=== PATIENT | male | born 1975 | race Caucasian/White ===

== ENCOUNTER 2018-09-22 15:22 | Emergency (ER) | payer MEDICAID ==
[~2018-09-22] VITALS: Ht 170.2 cm; Wt 85.7 kg
[2018-09-22 15:22] VITALS: BP_SYST 127
--- NOTE | 2018-09-22 15:22 | NUR ---
BROUGHT BACK TO BED #8 AND TRIAGED. REPORT GIVEN TO SHANNON
--- NOTE | 2018-09-22 15:40 | NUR ---
Patient presented to ER with chest pain. Patient AA&Ox4, afebrile, skin pink, respirations equal bilat, pain 1/10. Patient states "chest pressure started Wednesday" and he feels tired, chest discomfort did not subside so patient decided to come to ER. Patient states he was concerned that chest discomfort continued for several days. Patient states he has history of high blood pressure and takes Lisinopril(pt does not knoe dose) and fenofibrate daily. patient states he is prescribed Levothyroxide but has notaken in past 5 days.
--- NOTE | 2018-09-22 15:50 | NUR ---
ER Dr. Olmedo at bedside examining patient.
[2018-09-22] MEDS ORDERED: NACL 0.9% 1,000 ML IV ONE (16:00)
[2018-09-22] MEDS ORDERED: ASPIRIN 81 MG TAB.CHEW PO ONE (16:00)
[2018-09-22 16:26] LABS: BASOPHILS % (AUTO) 0.5 % (0.0-2.0); EOSINOPHILS % (AUTO) 0.3 % (0.0-4.0); HEMATOCRIT 40.5 % (36-54); HEMOGLOBIN 13.6 g/dL (14.0-18.0); LYMPHOCYTES # (AUTO) 1.3 K/uL (1.0-5.5); LYMPHOCYTES % (AUTO) 25.4 % (20.5-51.5); MEAN CORPUSCULAR HEMOGLOBIN 30 pg (27-31); MEAN CORPUSCULAR HGB CONC 34 % (32-36); MEAN CORPUSCULAR VOLUME 90 fL (79.0-98.0); MONOCYTES # (AUTO) 0.4 K/uL (0.0-1.0); MONOCYTES % (AUTO) 8.5 % (1.7-9.3); NEUTROPHILS # (AUTO) 3.3 K/uL (1.8-7.7); NEUTROPHILS % (AUTO) 65.3 % (40.0-70.0); PLATELET COUNT (AUTO) 366 K/uL (130-430); RED BLOOD CELL COUNT(AUTO) 4.51 MIL/uL (4.2-6.2); RED CELL DISTRIBUTION WIDTH 13.1 % (9.0-15.0)
[2018-09-22 16:28] LABS: BILIRUBIN,URINE NEGATIVE (NEGATIVE); BLOOD, URINE TRACE (NEGATIVE); CLARITY/URINE CLEAR (CLEAR); COLOR,URINE YELLOW (YELLOW); GLUCOSE,URINE NEGATIVE (NEGATIVE); KETONES,URINE NEGATIVE (NEGATIVE); LEUKOCYTE ESTERASE ,URINE NEGATIVE (NEGATIVE); NITRITE, URINE NEGATIVE (NEGATIVE); PROTEIN URINE NEGATIVE (NEGATIVE); UROBILINOGEN,URINE 0.2 (0.2-1.0)
--- NOTE | 2018-09-22 16:30 | NUR ---
Patient assisted to restroom wit IV pole
[2018-09-22 16:34] LABS: BACTERIA,URINE RARE /HPF (None Seen); RBC,URINE 0-3 /HPF (0-3); WBC,URINE 0-3 /HPF (0-3)
[2018-09-22 16:39] LABS: CALCIUM 9.6 mg/dL (8.4-11.0); CREATININE 1.32 mg/dL (0.55-1.30)
[2018-09-22 16:54] LABS: ALBUMIN 4.3 g/dL (3.4-4.8); THYROID STIMULATING HORMONE 3.81 uIu/mL (0.36-3.74); TOTAL BILIRUBIN 0.5 mg/dL (0.0-1.0)
[2018-09-22 18:15] VITALS: BP_SYST 110
--- NOTE | 2018-09-22 18:15 | NUR ---
Patient given written and verbal discharge instructions and verbalizes understanding. ER MD discussed with patient the results and treatment provided. Patient in stable condition. ID arm band removed. IV catheter removed intact and dressing applied, no active bleeding. No Rx given. Patient educated on pain management and to follow up with PMD. Pain Scale 0/10 . Opportunity for questions provided and answered. Medication side effect fact sheet provided.
== END 2018-09-22 18:15 | disposition home or self-care (01) ==
LOC: SED 15:22
DX: R07.89 Other chest pain (principal); I10 Essential (primary) hypertension; Z90.49 Acquired absence of other specified parts of digestive tract
CPT/HCPCS: 36415; 71045; 80053; 81000; 82550; 84443; 84484; 85025; 85379; 93005; 99284; J7030

== ENCOUNTER 2020-03-10 15:46 | Emergency (ER) | payer MEDICAID ==
[~2020-03-10] VITALS: Ht 170.2 cm; Wt 83.9 kg
[2020-03-10 16:00] VITALS: BP_SYST 155
--- NOTE | 2020-03-10 16:00 | NUR ---
Patient to ER bed 8 to gown for evaluation. Side rails up. Report given to MOSES.
--- NOTE | 2020-03-10 16:02 | NUR ---
PT AAO AND AMBULATORY REPORTSING LEFT SIDED FLANK PAIN THAT STARTED YESTERDAY. PT REPORTS BLOOD IN URINE AND PAIN SCALE 2/10. PT HAS HISTORY OF KIDNEY STONES.
--- NOTE | 2020-03-10 16:23 | NUR ---
ER Dr. Mo at bedside examining patient.
[2020-03-10] MEDS ORDERED: NACL 0.9% 1,000 ML IV ONE (16:28)
[2020-03-10 16:38] LABS: BILIRUBIN,URINE NEGATIVE (NEGATIVE); BLOOD, URINE 3+ (NEGATIVE); CLARITY/URINE CLOUDY (CLEAR); COLOR,URINE YELLOW (YELLOW); GLUCOSE,URINE NEGATIVE (NEGATIVE); KETONES,URINE NEGATIVE (NEGATIVE); LEUKOCYTE ESTERASE ,URINE TRACE (NEGATIVE); NITRITE, URINE NEGATIVE (NEGATIVE); PH,URINE 5.5 (5.0-8.0); PROTEIN URINE TRACE (NEGATIVE); UROBILINOGEN,URINE 0.2 (0.2-1.0)
--- NOTE | 2020-03-10 16:50 | NUR ---
# 18 gauge angiocath placed to LFA. Use of asceptic technique. Opsite placed over site. Blood return noted. Flushed with 10 cc of normal saline. No evidence of infiltration noted. Patient tolerated well.
[2020-03-10 17:03] LABS: BACTERIA,URINE MANY /HPF (None Seen); CALCIUM OXALATE CRYSTALS,UR 0-10 /HPF (None Seen)
[2020-03-10 17:04] LABS: RBC,URINE 20-50 /HPF (0-3)
[2020-03-10 17:08] LABS: BASOPHILS % (AUTO) 0.3 % (0.0-2.0); HEMOGLOBIN 12.3 g/dL (14.0-18.0); LYMPHOCYTES # (AUTO) 1.3 K/uL (1.0-5.5); LYMPHOCYTES % (AUTO) 26.5 % (20.5-51.5); MEAN CORPUSCULAR HEMOGLOBIN 30 pg (27-31); MEAN CORPUSCULAR HGB CONC 33 % (32-36); MEAN CORPUSCULAR VOLUME 91 fL (79.0-98.0); MONOCYTES # (AUTO) 0.4 K/uL (0.0-1.0); NEUTROPHILS # (AUTO) 3.1 K/uL (1.8-7.7); NEUTROPHILS % (AUTO) 64.2 % (40.0-70.0); PLATELET COUNT (AUTO) 309 K/uL (130-430); RED BLOOD CELL COUNT(AUTO) 4.08 MIL/uL (4.2-6.2); RED CELL DISTRIBUTION WIDTH 12.9 % (9.0-15.0); WHITE BLOOD COUNT (AUTO) 4.8 K/uL (4.8-10.8)
--- NOTE | 2020-03-10 17:11 | NUR ---
Patient is taken to CT via gurney, in stable condition.
[2020-03-10 17:15] LABS: CALCIUM 8.6 mg/dL (8.4-11.0); CREATININE 1.56 mg/dL (0.55-1.30); POTASSIUM 3.6 mmol/L (3.5-5.1)
[2020-03-10 17:21] LABS: TOTAL BILIRUBIN 0.2 mg/dL (0.0-1.0)
--- NOTE | 2020-03-10 17:30 | NUR ---
Patient is back from CT in stable condition.
--- NOTE | 2020-03-10 18:30 | NUR ---
Patient given written and verbal discharge instructions and verbalizes understanding. ER MD discussed with patient the results and treatment provided. Patient in stable condition. ID arm band removed. IV catheter removed intact and dressing applied, no active bleeding. Rx of Naprosyn given. Patient educated on pain management and to follow up with PMD. Pain Scale 0/10. Opportunity for questions provided and answered. Medication side effect fact sheet provided.
[2020-03-10 18:38] VITALS: BP_SYST 155
== END 2020-03-10 18:38 | disposition home or self-care (01) ==
LOC: SED 15:46
DX: N20.0 Calculus of kidney (principal); I10 Essential (primary) hypertension; E78.5 Hyperlipidemia, unspecified; N18.9 Chronic kidney disease, unspecified
CPT/HCPCS: 36415; 74176; 80053; 81000; 85025; 87040; 87086; 96360; 99284; J7030

== ENCOUNTER 2020-03-12 19:12 | Inpatient (IN) | payer MEDICAID ==
[~2020-03-12] VITALS: Ht 170.2 cm; Wt 83.9 kg
[2020-03-12 19:54] VITALS: BP_SYST 153
[2020-03-12] MEDS ORDERED: NACL 0.9% 1,000 ML IV ONE (20:00)
[2020-03-12] MEDS ORDERED: KETOROLAC TROMETHAMINE 30 MG VIAL IVP ONE (20:00)
[2020-03-12] MEDS ORDERED: ONDANSETRON HCL 4 MG/2 ML VIAL IVP ONE (20:00)
[2020-03-12] MEDS ORDERED: MORPHINE 4 MG/ML INJ. SYRINGE IVP ONE (20:30)
[2020-03-12 20:34] LABS: BASOPHILS % (AUTO) 0.4 % (0.0-2.0); EOSINOPHILS % (AUTO) 0.1 % (0.0-4.0); HEMATOCRIT 37.9 % (36-54); HEMOGLOBIN 12.5 g/dL (14.0-18.0); LYMPHOCYTES # (AUTO) 1.7 K/uL (1.0-5.5); LYMPHOCYTES % (AUTO) 16.3 % (20.5-51.5); MEAN CORPUSCULAR HEMOGLOBIN 30 pg (27-31); MEAN CORPUSCULAR HGB CONC 33 % (32-36); MEAN CORPUSCULAR VOLUME 91 fL (79.0-98.0); MONOCYTES % (AUTO) 9.5 % (1.7-9.3); NEUTROPHILS # (AUTO) 7.9 K/uL (1.8-7.7); NEUTROPHILS % (AUTO) 73.7 % (40.0-70.0); PLATELET COUNT (AUTO) 348 K/uL (130-430); RED BLOOD CELL COUNT(AUTO) 4.15 MIL/uL (4.2-6.2); RED CELL DISTRIBUTION WIDTH 13.2 % (9.0-15.0); WHITE BLOOD COUNT (AUTO) 10.7 K/uL (4.8-10.8)
[2020-03-12 21:00] LABS: CREATININE 2.06 mg/dL (0.55-1.30); POTASSIUM 3.6 mmol/L (3.5-5.1)
[2020-03-12 21:06] LABS: ALBUMIN 4.3 g/dL (3.4-4.8); TOTAL BILIRUBIN 0.3 mg/dL (0.0-1.0)
[2020-03-13] MEDS ORDERED: cefTRIAXone 1 GM in D5W 50 ML IV ONE (02:45)
[2020-03-13] MEDS ORDERED: FENO160 PO (02:47)
[2020-03-13] MEDS ORDERED: LISI-600 PO (02:48)
[2020-03-13] MEDS ORDERED: cefTRIAXone 1 GM VIAL ONE (03:10)
[2020-03-13 03:53] VITALS: BP_SYST 127
[2020-03-13] MEDS ORDERED: MORPHINE 4 MG/ML INJ. SYRINGE IVP PRN (05:45)
[2020-03-13] MEDS ORDERED: NALOXONE HCL 0.4 MG/ML AMP (NARCAN) IVP PRN (05:45)
[2020-03-13] MEDS ORDERED: LORazepam 2 MG/ML VIAL IVP PRN (05:45)
[2020-03-13] MEDS ORDERED: ACETAMINOPHEN 325 MG TABLET PO PRN (05:45)
[2020-03-13] MEDS ORDERED: ONDANSETRON HCL 4 MG/2 ML VIAL IVP PRN (05:45)
[2020-03-13] MEDS ORDERED: ALBUTEROL SULFATE 0.083% 2.5 MG/3 ML VIAL.NEB INH PRN (05:45)
[2020-03-13 05:53] VITALS: BP_SYST 123
[2020-03-13] MEDS: NACL 0.9% 1,000 ML IV SCH ×3 (07:30→20:28)
[2020-03-13 08:00] VITALS: BP_SYST 119
[2020-03-13] MEDS ORDERED: lisinopriL 20 MG TABLET PO SCH (09:00)
[2020-03-13 09:47] LABS: BASOPHILS % (AUTO) 0.2 % (0.0-2.0); EOSINOPHILS % (AUTO) 0.6 % (0.0-4.0); HEMOGLOBIN 11.5 g/dL (14.0-18.0); LYMPHOCYTES # (AUTO) 1.4 K/uL (1.0-5.5); LYMPHOCYTES % (AUTO) 25.6 % (20.5-51.5); MEAN CORPUSCULAR HEMOGLOBIN 31 pg (27-31); MEAN CORPUSCULAR HGB CONC 34 % (32-36); MEAN CORPUSCULAR VOLUME 91 fL (79.0-98.0); MONOCYTES # (AUTO) 0.6 K/uL (0.0-1.0); MONOCYTES % (AUTO) 10.2 % (1.7-9.3); NEUTROPHILS # (AUTO) 3.4 K/uL (1.8-7.7); NEUTROPHILS % (AUTO) 63.4 % (40.0-70.0); PLATELET COUNT (AUTO) 262 K/uL (130-430); RED BLOOD CELL COUNT(AUTO) 3.75 MIL/uL (4.2-6.2); RED CELL DISTRIBUTION WIDTH 13.2 % (9.0-15.0); WHITE BLOOD COUNT (AUTO) 5.4 K/uL (4.8-10.8)
[2020-03-13 09:59] LABS: PROTHROMBIN TIME 10.5 SECS (9.5-12.5)
[2020-03-13 10:03] LABS: ALBUMIN 3.4 g/dL (3.4-4.8); CALCIUM 8.1 mg/dL (8.4-11.0); CREATININE 1.5 mg/dL (0.55-1.30); POTASSIUM 4.1 mmol/L (3.5-5.1); TOTAL BILIRUBIN 0.3 mg/dL (0.0-1.0)
[2020-03-13] MEDS: MORPHINE 2 MG/ML INJ. SYRINGE IVP PRN ×2 (10:33→14:49)
[2020-03-13 12:00] VITALS: BP_SYST 127
[2020-03-13] MEDS ORDERED: TAMSULOSIN HCL 0.4 MG CAP PO ONE (13:15)
[2020-03-13 16:00] VITALS: BP_SYST 141
[2020-03-13 20:00] VITALS: BP_SYST 133
[2020-03-13] MEDS ORDERED: FENOFIBRATE 160 MG TABLET PO SCH (21:00)
[2020-03-13] MEDS ORDERED: cefTRIAXone 1 GM IVPB PREMIX 50 ML IV SCH (21:00)
[2020-03-14 01:07] VITALS: BP_SYST 132
[2020-03-14] MEDS: NACL 0.9% 1,000 ML IV SCH ×2 (05:41→08:42)
[2020-03-14 07:48] LABS: BASOPHILS % (AUTO) 0.5 % (0.0-2.0); EOSINOPHILS # (AUTO) 0.1 K/uL (0.0-0.4); EOSINOPHILS % (AUTO) 2.1 % (0.0-4.0); HEMATOCRIT 31.6 % (36-54); HEMOGLOBIN 10.6 g/dL (14.0-18.0); LYMPHOCYTES # (AUTO) 1.4 K/uL (1.0-5.5); LYMPHOCYTES % (AUTO) 29.3 % (20.5-51.5); MEAN CORPUSCULAR HEMOGLOBIN 31 pg (27-31); MEAN CORPUSCULAR HGB CONC 34 % (32-36); MEAN CORPUSCULAR VOLUME 91 fL (79.0-98.0); MONOCYTES # (AUTO) 0.6 K/uL (0.0-1.0); MONOCYTES % (AUTO) 11.9 % (1.7-9.3); NEUTROPHILS # (AUTO) 2.7 K/uL (1.8-7.7); NEUTROPHILS % (AUTO) 56.2 % (40.0-70.0); PLATELET COUNT (AUTO) 243 K/uL (130-430); RED BLOOD CELL COUNT(AUTO) 3.46 MIL/uL (4.2-6.2); RED CELL DISTRIBUTION WIDTH 13.2 % (9.0-15.0); WHITE BLOOD COUNT (AUTO) 4.7 K/uL (4.8-10.8)
[2020-03-14 08:00] VITALS: BP_SYST 126
[2020-03-14 08:14] LABS: ALBUMIN 2.8 g/dL (3.4-4.8); CALCIUM 7.8 mg/dL (8.4-11.0); CREATININE 1.34 mg/dL (0.55-1.30); TOTAL BILIRUBIN 0.1 mg/dL (0.0-1.0)
[2020-03-14] MEDS ORDERED: TAMSULOSIN HCL 0.4 MG CAP PO SCH (09:00)
[2020-03-14] MEDS ORDERED: TAMS-11 PO (13:04)
[2020-03-14] MEDS ORDERED: CEPH-568 PO (13:05)
== END 2020-03-14 15:00 | disposition home or self-care (01) | DRG 465 ==
LOC: SED 19:12 → SMU 03-13 02:39
PROVIDERS: ADMIT Internal Medicine Hospice and Palliative Medicine; ATTEND Internal Medicine Hospice and Palliative Medicine
DX: N13.2 Hydronephrosis with renal and ureteral calculous obstruction (principal); E78.5 Hyperlipidemia, unspecified; N12 Tubulo-interstitial nephritis, not specified as acute or chronic; I12.9 Hypertensive chronic kidney disease with stage 1 through stage 4 chronic kidney disease, or unspecified chronic kidney disease; N17.0 Acute kidney failure with tubular necrosis; R31.0 Gross hematuria; N18.9 Chronic kidney disease, unspecified; Z82.49 Family history of ischemic heart disease and other diseases of the circulatory system; Z87.442 Personal history of urinary calculi; Z90.49 Acquired absence of other specified parts of digestive tract
CPT/HCPCS: 36415; 80053; 82360; 85025; 85610-TC; 88300; 96361; 96365; 96375; 99285; J0696; J1885; J2270; J2405; J7030

== ENCOUNTER 2022-05-03 14:59 | Emergency (ER) | payer MEDICAID ==
[~2022-05-03] VITALS: Ht 175.3 cm; Wt 77.1 kg
[~2022-05-03 14:59] MED LIST: CEPH-568 PO; FENO160 PO; TAMS-11 PO
[2022-05-03 15:06] VITALS: BP_SYST 144
--- NOTE | 2022-05-03 15:09 | NUR ---
Patient triaged and placed in waiting room. VSS and patient appears in no acute distress at this time. Accompanied by STAFF, awaiting available bed, and DR. DEVON BUENO notified of need for MSE.
--- NOTE | 2022-05-03 17:24 | NUR ---
COVID AND FLU SAMPLE COLLECTED
[2022-05-03] MEDS ORDERED: ZIT250 PO ×2 (19:18→19:48)
[2022-05-03] MEDS ORDERED: ALBMDI INH ×2 (19:19→19:48)
[2022-05-03] MEDS ORDERED: IBUP-1971 PO (19:20)
[2022-05-03] MEDS ORDERED: cefTRIAXone 1 GM in LIDOCAINE 1%, 20 ML MDV 2.1 ML IM ONE (19:30)
[2022-05-03] MEDS ORDERED: IBUPROFEN 800 MG TABLET PO ONE (19:30)
[2022-05-03] MEDS ORDERED: IBUP800T54 PO (19:48)
[2022-05-03 19:52] VITALS: BP_SYST 147
--- NOTE | 2022-05-03 19:53 | NUR ---
Patient given written and verbal discharge instructions and verbalizes understanding. ER MD Williamson discussed with patient the results and treatment provided. Patient in stable condition. ID arm band removed. Rx sent to preferred pharmacy. Patient educated on pain management and to follow up with PMD. Opportunity for questions provided and answered. Medication side effect fact sheet provided.
== END 2022-05-03 19:53 | disposition home or self-care (01) ==
LOC: SED 14:59
DX: J18.9 Pneumonia, unspecified organism (principal); R05.9 Cough, unspecified; R09.81 Nasal congestion; J02.9 Acute pharyngitis, unspecified; I10 Essential (primary) hypertension; E78.5 Hyperlipidemia, unspecified; Z79.899 Other long term (current) drug therapy; Z20.822 Contact with and (suspected) exposure to COVID-19
CPT/HCPCS: 99284; 71045; 87426; 36415; 96372; 87804 ×2; J0696; J2001

== ENCOUNTER → 2022-08-18 | Emergency (ER) | payer MEDICAID ==
[~2022-08-18] VITALS: Ht 170.2 cm; Wt 81.6 kg
[~2022-08-18] MED LIST changes: +ALBMDI INH; +BACITRACIN 1 GM OINT TP ONE; +IBUP-1971 PO; +IBUP800T54 PO; +SOM350 PO; +ZIT250 PO
[2022-08-18 18:39] VITALS: BP_SYST 143
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
--- NOTE | 2022-08-18 23:22 | NUR ---
ATTEMPTED TO D/C PATIENT, PT NOT FOUND IN WAITING ROOM. PT LEFT WITHOUT DISCHARGE INSTRUCTIONS.
== END | disposition home or self-care (01) ==
LOC: SED 18:10
DX: S33.5XXA Sprain of ligaments of lumbar spine, initial encounter (principal); E78.5 Hyperlipidemia, unspecified; I10 Essential (primary) hypertension; Z79.899 Other long term (current) drug therapy; V89.2XXA Person injured in unspecified motor-vehicle accident, traffic, initial encounter; Y93.89 Activity, other specified; Y92.89 Other specified places as the place of occurrence of the external cause; Y99.8 Other external cause status
CPT/HCPCS: 71046-TC; 72100-TC; 99284

== ENCOUNTER 2023-05-15 09:51 | Emergency (ER) | payer MEDICAID, OTHER ==
[~2023-05-15] VITALS: Ht 170.2 cm; Wt 84.4 kg
[~2023-05-15 09:51] MED LIST changes: -BACITRACIN 1 GM OINT TP ONE
[2023-05-15 10:20] VITALS: BP_SYST 130; PULSE 80; RESP 19; TEMP 97.9; O2SAT 99
[2023-05-15 10:54] LABS: BASOPHILS % (AUTO) 0.6 % (0.0-2.0); EOSINOPHILS % (AUTO) 0.4 % (0.0-4.0); HEMATOCRIT 43.2 % (36-54); HEMOGLOBIN 14.1 g/dL (14.0-18.0); LYMPHOCYTES # (AUTO) 1.3 K/uL (1.0-5.5); LYMPHOCYTES % (AUTO) 27.6 % (20.5-51.5); MEAN CORPUSCULAR HEMOGLOBIN 29 pg (27-31); MEAN CORPUSCULAR HGB CONC 33 % (32-36); MEAN CORPUSCULAR VOLUME 89 fL (79.0-98.0); MONOCYTES # (AUTO) 0.6 K/uL (0.0-1.0); MONOCYTES % (AUTO) 11.5 % (1.7-9.3); NEUTROPHILS # (AUTO) 2.9 K/uL (1.8-7.7); NEUTROPHILS % (AUTO) 59.9 % (40.0-70.0); PLATELET COUNT (AUTO) 374 K/uL (130-430); RED BLOOD CELL COUNT(AUTO) 4.83 MIL/uL (4.2-6.2); RED CELL DISTRIBUTION WIDTH 13.3 % (9.0-15.0); WHITE BLOOD COUNT (AUTO) 4.8 K/uL (4.8-10.8)
[2023-05-15 11:13] LABS: CALCIUM 9.6 mg/dL (8.4-11.0); CREATININE 1.4 mg/dL (0.55-1.30); POTASSIUM 4.3 mmol/L (3.5-5.1)
[2023-05-15 11:17] LABS: ALBUMIN 3.8 g/dL (3.4-4.8); BILIRUBIN,DIRECT 0.1 mg/dL (0.0-0.3); TOTAL BILIRUBIN 0.3 mg/dL (0.0-1.0); TOTAL PROTEIN, SERUM 7.5 g/dL (6.4-8.3)
[2023-05-15 11:42] LABS: BILIRUBIN,URINE NEGATIVE (NEGATIVE); BLOOD, URINE 1+ (NEGATIVE); CLARITY/URINE SL CLOUDY (CLEAR); COLOR,URINE YELLOW (YELLOW); GLUCOSE,URINE NEGATIVE (NEGATIVE); KETONES,URINE NEGATIVE (NEGATIVE); LEUKOCYTE ESTERASE ,URINE NEGATIVE (NEGATIVE); NITRITE, URINE NEGATIVE (NEGATIVE); PROTEIN URINE NEGATIVE (NEGATIVE); UROBILINOGEN,URINE 0.2 (0.2-1.0)
[2023-05-15 11:58] LABS: BACTERIA,URINE None Seen /HPF (None Seen); URINE AMORPHOUS PHOSPHATES 3+ /HPF (None Seen); WBC,URINE NONE SEEN /HPF (0-3)
[2023-05-15] MEDS ORDERED: ONDA-8 TL (12:27)
[2023-05-15] MEDS ORDERED: DICY-14 PO (12:27)
[2023-05-15] MEDS ORDERED: CIPR500T5 PO (12:27)
[2023-05-15] MEDS ORDERED: ACET-2634 PO (12:27)
[2023-05-15] MEDS ORDERED: IMO2 PO (12:27)
== END 2023-05-15 12:33 | disposition home or self-care (01) ==
LOC: SED 09:51
DX: A08.4 Viral intestinal infection, unspecified (principal); E86.0 Dehydration; N17.9 Acute kidney failure, unspecified; R31.9 Hematuria, unspecified; I10 Essential (primary) hypertension; Z79.899 Other long term (current) drug therapy
CPT/HCPCS: 36415; 76376; 80048; 80076; 81000; 81001; 81015; 83690; 85025; 99284